=== PATIENT | female | born 1990 | race Asian ===

== ENCOUNTER 2022-07-30 15:57 | Emergency (ER) | payer OTHER ==
[2022-07-30 16:07] VITALS: BP 109/70; PULSE 81; RESP 16; TEMP 98.1; BMI 22.6
== END 2022-07-30 18:51 | disposition home or self-care (01) ==
LOC: JERFT 15:57
DX: R06.02 Shortness of breath (principal); R09.82 Postnasal drip
CPT/HCPCS: 71046-TC-FY; 93005; 93010; 99284-25